=== PATIENT | male | born 1950 | race Caucasian/White ===

== ENCOUNTER 2020-02-19 10:28 | Day surgery (SDC) | payer BC ==
[~2020-02-19 10:28] MED LIST: Cefuroxime 10 MG/ML SYRINGE EYERT SCH; Lidocaine 1% PF 2 ML SDV INJECT SCH; Pilocarpine 4% Ophth Soln 15 ML Bot EYERT SCH
[2020-02-19] MEDS: Polymyxin B/Trimethoprim 10 ML Bottle EYERT SCH ×3 (10:46→12:14)
[2020-02-19] MEDS: Brimonidine 0.2% Ophth Soln 5 ML Bottle EYERT SCH ×3 (10:50→12:14)
[2020-02-19] MEDS: Phenylephrine 2.5% Ophth Soln 2 ML Bot EYERT SCH ×5 (10:57→11:55)
[2020-02-19] MEDS: Tropicamide 1% Ophth Soln 15 ML Bottle EYERT SCH ×4 (11:00→11:32)
--- NOTE | 2020-02-19 11:03 | PCM.PREANE ---
Preanesthetic Assessment - Procedure Proposed Procedure: Right IOL Replacement - Anesthesia/Transfusion/Family Hx Anesthesia History: Prior Anesthesia Without Reaction Family History of Anesthesia Reaction: No - Review of Systems General: No Symptoms Pulmonary: No Symptoms Cardiovascular: No Symptoms Gastrointestinal: No Symptoms Neurological: No Symptoms Other: Reports: Diabetes - Physical Assessment NPO Status Date: 02/19/20 (greater than 8 hours) Height: 6 ft Weight: 108.862 kg ASA Class: 3 Mental Status: Alert & Oriented x3 Airway Class: Mallampati = 2 Dentition: Reports: Normal Dentition ROM/Head Extension: Full Lungs: Clear to Auscultation, Normal Respiratory Effort Cardiovascular: Regular Rate, Regular Rhythm - Allergies Allergies/Adverse Reactions: Allergies Allergy/AdvReac Type Severity Reaction Status Date / Time empagliflozin Allergy Rash Verified 02/18/20 11:05 [From Jardiance] Penicillins Allergy Swelling Verified 02/18/20 11:05 [place] Allergy Rash Uncoded 02/18/20 11:05 - Acknowledgements Anesthesia Type Planned: MAC Pt an Appropriate Candidate for the Planned Anesthesia: Yes Alternatives and Risks of Anesthesia Discussed w Pt/Guardian: Yes Pt/Guardian Understands and Agrees with Anesthesia Plan: Yes PreAnesthesia Questionnaire Cardiovascular History: Reports: High Cholesterol Endocrine/Metabolic History: Reports: Diabetes, Type II - HOME MEDS Home Medications: Home Meds Flaxseed Oil/[place] 3,6,9 [Sv Flaxseed Oil 1,300 mg Sftgl] 1 cap PO DAILY 12/29/17 [History] Liraglutide [Victoza 3-Darshan] 18 mg SUBCUT ASDIRECTED #1 pen 12/29/17 [Rx] Lisinopril 10 mg PO DAILY 12/29/17 [History] metFORMIN [Glucophage XR] 500 mg PO DAILY 12/29/17 [History] Dapagliflozin Propanediol [Farxiga] 10 mg PO DAILY #30 tablet 12/30/17 [Rx] Rosuvastatin [Crestor] 10 mg PO DAILY 02/18/20 [History] glipiZIDE [Glucotrol XL] 10 mg PO DAILY 02/18/20 [History] - CURRENT (IN HOUSE) MEDS Current Meds: Current Medications Brimonidine Tartrate (Alphagan 0.2% Ophth Soln) 0 ml EYERT ASDIRECTED SKYLER Stop: 02/19/20 20:00 Cefuroxime Sodium (Zinacef) 0 mg EYERT ASDIRECTED SKYLER Stop: 02/19/20 20:00 Lidocaine HCl (Xylocaine-Mpf 1%) 0 ml INJECT ASDIRECTED SKYLER Stop: 02/19/20 20:00 Phenylephrine HCl ([place]ike-Synephrine 2.5% Ophth Soln) 0 ml EYERT ASDIRECTED SKYLER Stop: 02/19/20 22:00 Pilocarpine HCl (Pilocar 4% Ophth Soln) 0 ml EYERT ASDIRECTED SKYLER Stop: 02/19/20 20:00 Polymyxin/Trimethoprim Sulfate (Polytrim Ophth Soln) 0 ml EYERT ASDIRECTED SKYLER Stop: 02/19/20 20:00 Last Admin: 02/19/20 10:46 Dose: 1 drop Documented by: Tetracaine HCl (Tetracaine 0.5% Steri-Unit Allyson) 0 ml EYEBOTH ASDIRECTED SKYLER Stop: 02/19/20 20:00 Tropicamide (Mydriacyl 1% Ophth Soln) 0 ml EYERT ASDIRECTED SKYLER Stop: 02/19/20 20:00
[2020-02-19] MEDS: Tetracaine HCl/PF 0.5% 4 ML Bottle EYEBOTH SCH ×5 (11:40→12:01)
--- NOTE | 2020-02-19 12:28 | PCM48HPAN ---
Post Anesthesia Note - EVALUATION WITHIN 48HRS OF ANESTHETIC Vital Signs in Normal Range: Yes Patient Participated in Evaluation: Yes Respiratory Function Stable: Yes Airway Patent: Yes Cardiovascular Function Stable: Yes Hydration Status Stable: Yes Pain Control Satisfactory: Yes Nausea and Vomiting Control Satisfactory: Yes Mental Status Recovered: Yes Vital Signs: Last Vital Signs Temp 36.6 C 02/19/20 10:45 Pulse 70 02/19/20 10:45 Resp 16 02/19/20 10:45 BP 124/73 02/19/20 10:45 Pulse Ox 97 02/19/20 10:45 - COMMENTS/OBSERVATIONS Free Text/Narrative:: Routine transfer to recovery with handoff. VSS, SV, PERKINS, FAC, CTAB. No concerns at this time.
== END 2020-02-19 12:30 | disposition home or self-care (01) ==
LOC: JD.SDS 10:28
PROVIDERS: ATTEND Ophthalmology
DX: E11.36 Type 2 diabetes mellitus with diabetic cataract (principal); H25.813 Combined forms of age-related cataract, bilateral; H16.103 Unspecified superficial keratitis, bilateral; H16.223 Keratoconjunctivitis sicca, not specified as Sjogren's, bilateral; H02.831 Dermatochalasis of right upper eyelid; H02.834 Dermatochalasis of left upper eyelid; E78.00 Pure hypercholesterolemia, unspecified; Z88.1 Allergy status to other antibiotic agents; Z79.84 Long term (current) use of oral hypoglycemic drugs; Z79.899 Other long term (current) drug therapy
CPT/HCPCS: 66984; C1780; J0697; J2001

== ENCOUNTER 2020-03-20 08:05 | Day surgery (SDC) | payer BC ==
[~2020-03-20 08:05] MED LIST changes: +Cefuroxime 10 MG/ML SYRINGE EYELF SCH; -Cefuroxime 10 MG/ML SYRINGE EYERT SCH; +Pilocarpine 4% Ophth Soln 15 ML Bot EYELF SCH; -Pilocarpine 4% Ophth Soln 15 ML Bot EYERT SCH
--- NOTE | 2020-03-20 08:28 | PCM.PREANE ---
Preanesthetic Assessment - Procedure Proposed Procedure: Left Eye Cataract Extraction with IOL - Anesthesia/Transfusion/Family Hx Anesthesia History: Prior Anesthesia Without Reaction Family History of Anesthesia Reaction: No - Review of Systems General: No Symptoms Pulmonary: No Symptoms Cardiovascular: Other (One episode of chest tightness 3 years ago. Had a stress test that was negative. No further epidodes of chest pain. ) Gastrointestinal: No Symptoms Neurological: No Symptoms Other: Reports: Diabetes (Type II) - Physical Assessment NPO Status Date: 03/19/20 NPO Status Time: 19:00 Vital Signs: Last Vital Signs Temp 36.9 C 03/20/20 08:05 Pulse 64 03/20/20 08:05 Resp 16 03/20/20 08:05 BP 139/75 03/20/20 08:05 Pulse Ox 98 03/20/20 08:05 Height: 1.88 m Weight: 108.862 kg ASA Class: 5E Emergency Airway Class: Mallampati = 2 Dentition: Reports: Normal Dentition Thyro-Mental Finger Breadths: 3 Mouth Opening Finger Breadths: 3 ROM/Head Extension: Full Lungs: Clear to Auscultation, Normal Respiratory Effort Cardiovascular: Regular Rate, Regular Rhythm - Allergies Allergies/Adverse Reactions: Allergies Allergy/AdvReac Type Severity Reaction Status Date / Time empagliflozin Allergy Rash Verified 03/19/20 15:00 [From Jardiance] Penicillins Allergy Swelling Verified 03/19/20 15:00 [place] Allergy Rash Uncoded 03/19/20 15:00 - Anesthesia Plan Pre-Op Medication Ordered: None - Acknowledgements Anesthesia Type Planned: MAC Pt an Appropriate Candidate for the Planned Anesthesia: Yes Alternatives and Risks of Anesthesia Discussed w Pt/Guardian: Yes Pt/Guardian Understands and Agrees with Anesthesia Plan: Yes PreAnesthesia Questionnaire Cardiovascular History: Reports: High Cholesterol Endocrine/Metabolic History: Reports: Diabetes, Type II - HOME MEDS Home Medications: Home Meds Flaxseed Oil/[place] 3,6,9 [Sv Flaxseed Oil 1,300 mg Sftgl] 1 cap PO DAILY 12/29/17 [History] Liraglutide [Victoza 3-Darshan] 18 mg SUBCUT ASDIRECTED #1 pen 12/29/17 [Rx] Lisinopril 10 mg PO DAILY 12/29/17 [History] metFORMIN [Glucophage XR] 500 mg PO DAILY 12/29/17 [History] Dapagliflozin Propanediol [Farxiga] 10 mg PO DAILY #30 tablet 12/30/17 [Rx] Rosuvastatin [Crestor] 10 mg PO DAILY 02/18/20 [History] glipiZIDE [Glucotrol XL] 10 mg PO DAILY 02/18/20 [History] - CURRENT (IN HOUSE) MEDS Current Meds: Current Medications Brimonidine Tartrate (Alphagan 0.2% Ophth Soln) 0 ml EYELF ASDIRECTED SKYLER Stop: 03/20/20 18:00 Cefuroxime Sodium (Zinacef) 0 mg EYELF ASDIRECTED SKYLER Stop: 03/20/20 18:00 Lidocaine HCl (Xylocaine-Mpf 1%) 0 ml INJECT ASDIRECTED SKYLER Stop: 03/20/20 18:00 Phenylephrine HCl ([place]-Synephrine 2.5% Ophth Soln) 0 ml EYELF ASDIRECTED SKYLER Stop: 03/20/20 18:00 Pilocarpine HCl (Pilocar 4% Ophth Soln) 0 ml EYELF ASDIRECTED SKYLER Stop: 03/20/20 18:00 Polymyxin/Trimethoprim Sulfate (Polytrim Ophth Soln) 0 ml EYELF ASDIRECTED SKYLER Stop: 03/20/20 18:00 Tetracaine HCl (Tetracaine 0.5% Steri-Unit Allyson) 0 ml EYEBOTH ASDIRECTED SKYLER Stop: 03/20/20 18:00 Tropicamide (Mydriacyl 1% Ophth Soln) 0 ml EYELF ASDIRECTED SKYLER Stop: 03/20/20 18:00
[2020-03-20] MEDS: Polymyxin B/Trimethoprim 10 ML Bottle EYELF SCH ×3 (09:00→10:51)
[2020-03-20] MEDS: Brimonidine 0.2% Ophth Soln 5 ML Bottle EYELF SCH ×3 (09:05→10:51)
[2020-03-20] MEDS: Phenylephrine 2.5% Ophth Soln 2 ML Bot EYELF SCH ×5 (09:10→10:28)
[2020-03-20] MEDS: Tropicamide 1% Ophth Soln 15 ML Bottle EYELF SCH ×4 (09:15→10:10)
[2020-03-20] MEDS: Tetracaine HCl/PF 0.5% 4 ML Bottle EYEBOTH SCH ×2 (10:22→10:38)
--- NOTE | 2020-03-20 10:54 | PCM48HPAN ---
Post Anesthesia Note - EVALUATION WITHIN 48HRS OF ANESTHETIC Vital Signs in Normal Range: Yes Patient Participated in Evaluation: Yes Respiratory Function Stable: Yes Airway Patent: Yes Cardiovascular Function Stable: Yes Hydration Status Stable: Yes Pain Control Satisfactory: Yes Nausea and Vomiting Control Satisfactory: Yes Mental Status Recovered: Yes Vital Signs: Last Vital Signs Temp 36.9 C 03/20/20 08:05 Pulse 64 03/20/20 08:05 Resp 16 03/20/20 08:05 BP 139/75 03/20/20 08:05 Pulse Ox 98 03/20/20 08:05
== END 2020-03-20 11:03 | disposition home or self-care (01) ==
LOC: JD.SDS 08:05
PROVIDERS: ATTEND Ophthalmology
DX: E11.36 Type 2 diabetes mellitus with diabetic cataract (principal); H25.812 Combined forms of age-related cataract, left eye; H02.831 Dermatochalasis of right upper eyelid; H02.834 Dermatochalasis of left upper eyelid; H16.103 Unspecified superficial keratitis, bilateral; H16.223 Keratoconjunctivitis sicca, not specified as Sjogren's, bilateral; E78.00 Pure hypercholesterolemia, unspecified; I11.9 Hypertensive heart disease without heart failure; Z79.84 Long term (current) use of oral hypoglycemic drugs; Z79.899 Other long term (current) drug therapy; Z88.8 Allergy status to other drugs, medicaments and biological substances; Z88.0 Allergy status to penicillin; Z96.1 Presence of intraocular lens; Z98.890 Other specified postprocedural states
CPT/HCPCS: 66984; J0697; J2001; C1780